=== PATIENT | female | born 1945 | race Caucasian/White ===

== ENCOUNTER → 2016-05-23 | Outpatient (CLI) | payer OTHER ==
--- NOTE | 2016-05-23 10:45 | DX ---
Left hip, 2 views. HISTORY: Post arthroplasty. FINDINGS: Surgical features of a left total hip arthroplasty are identified. The acetabular and femor al components of the prosthesis are well seated, without hardware complication. Moderate right hip joint space narrowing is present compatible with osteoarthritis. IMPRESSION: 1. Status post left total hip arthroplasty without hardware complication. 2. Moderate right hip degenerative joint disease.
--- NOTE | 2016-05-23 10:47 | DX ---
Left knee, 3 views. HISTORY: Status post left knee arthroplasty. COMPARISON STUDY: November 17, 2015. FINDINGS: Surgical features of a left total knee arthroplasty are identified. The components of the p rosthesis are well seated. There are 2 osseous fragments posterior to the knee joint on the lateral r adiograph, measuring 15 and 7 mm in size, which may be intra-articular or extra-articular in location . No evidence of prosthesis loosening. IMPRESSION: 1. Status post left knee arthroplasty without loosening. 2. 2 separate bony fragments posterior to left knee joint are potentially intra-articular or extra-ar ticular in location, unchanged in appearance from November 17, 2015.
== END ==
LOC: BMCIMAGING 09:52
PROVIDERS: ATTEND Orthopaedic Surgery
DX: Z96.652 Presence of left artificial knee joint (principal); Z96.642 Presence of left artificial hip joint; M16.12 Unilateral primary osteoarthritis, left hip

== ENCOUNTER → 2016-09-21 | Outpatient (CLI) | payer OTHER | LOC: FIMAGING 11:35 | PROVIDERS: ATTEND Orthopaedic Surgery | DX: M17.11 Unilateral primary osteoarthritis, right knee (principal); M16.11 Unilateral primary osteoarthritis, right hip ==

== ENCOUNTER → 2016-10-09 | Outpatient (CLI) | payer OTHER | LOC: BHFA 13:45 | PROVIDERS: ATTEND Internal Medicine Interventional Cardiology | DX: I25.10 Atherosclerotic heart disease of native coronary artery without angina pectoris (principal); E78.5 Hyperlipidemia, unspecified ==

== ENCOUNTER → 2016-10-16 | Outpatient (CLI) | payer OTHER | LOC: BHFA 14:45 | PROVIDERS: ATTEND Internal Medicine Cardiovascular Disease | DX: I25.10 Atherosclerotic heart disease of native coronary artery without angina pectoris (principal) ==

== ENCOUNTER 2016-10-22 10:15 | Inpatient (IN) | payer OTHER ==
--- NOTE | 2016-10-22 07:08 | PDHPUP ---
History & Physical Update H&P update statement: This history and physical update is based on an assessment of the patient which was completed after admission or registration (within 24 hours), but prior to the surgery/procedure. H&P update: H&P reviewed & patient examined, no change in patient's condition since H&P completed
[~2016-10-22 10:15] MED LIST: ACETAMINOPHEN 325 MG TAB PO ONE; BISACODYL 10 MG SUPP PR PRN; DEXAMETHASONE 4 MG/ML VIAL IVP ONE; DIAZEPAM 5 MG TAB PO PRN; DIPHENOXYLATE/ATROPINE LOMOTIL 1 TAB PO PRN; FAMOTIDINE 20 MG TAB PO ONE; LACTULOSE 20 GM/30 ML UDCUP PO PRN; LEVALBUTEROL INHALER 200 PUFFS/15 GM MDI IH PRN; LR 1,000 ML IV SCH; MAGNESIUM HYDROXIDE 30 ML UDCUP PO PRN; METOCLOPRAMIDE 10 MG/2 ML VIAL IVP PRN; ONDANSETRON 4 MG/2 ML VIAL IVP PRN; ONDANSETRON DISINTEGRATING 4 MG TAB PO PRN; PHARMACY PAIN CONSULT 1 EA MISC PRN; POLYETHYLENE GLYCOL 3350 17 GM PKT PO PRN; PROMETHAZINE HCL 25 MG SUPPR PR PRN; PROMETHAZINE HCL 25 MG/ML INJ IVP PRN; TEMAZEPAM 15 MG CAP PO PRN; TRANEXAMIC ACID 1 MG in NS 100 ML IV ONE; TRANEXAMIC ACID 700 MG in NS 100 ML IV ONE; ceFAZolin 2 GM/DEXTROSE 100 ML IV ONE; diphenhydrAMINE 25 MG CAP PO PRN; oxyCODONE IR 5 MG TAB PO PRN
[2016-10-22] MEDS ORDERED: LIDOCAINE 1% 2 ML INJ ID PRN (10:48)
[2016-10-22] MEDS ORDERED: LR 1,000 ML IV ONE (10:48)
[2016-10-22] MEDS ORDERED: CEFAZOLIN 2 GM/DEXTROSE/100 ML BAG IV ONE (10:55)
[2016-10-22] MEDS ORDERED: DEXAMETHASONE 4 MG/ML VIAL ONE ×2 (10:55→13:00)
[2016-10-22] MEDS ORDERED: FAMOTIDINE 20 MG TAB ONE (10:55)
--- NOTE | 2016-10-22 12:30 | PDANEPAE ---
ANE History of Present Illness 71 YO FEMALE WITH ARTHRITIS FOR r tka ANE Past Medical History - Cardiovascular History Hx Hypertension: No Hx Arrhythmias: No Hx Chest Pain: No Hx Coronary Artery / Peripheral Vascular Disease: No Hx CHF / Valvular Disease: No Hx Palpitations: No - Pulmonary History Hx COPD: No Hx Asthma/Reactive Airway Disease: Yes Hx Recent Upper Respiratory Infection: Yes Hx Oxygen in Use at Home: Yes O2 in Use at Home (L/minute): 2l @ noc - Neurologic History Hx Cerebrovascular Accident: No Hx Seizures: No Hx Dementia: No - Endocrine History Hx Diabetes: No - Renal History Hx Renal Disorders: No - Liver History Hx Hepatic Disorders: No - Neurological & Psychiatric Hx Hx Neurological and Psychiatric Disorders: No - Cancer History Hx Cancer: No - Congenital Disorder History Hx Congenital Disorders: No - GI History Hx Gastrointestinal Disorders: No - Chronic Pain History Chronic Pain: Yes (Joints) ANE Review of Systems - Exercise capacity METS (RN): 4 METS - Systems Constitutional: Reports: no symptoms Cardiac: Reports: no symptoms (mild CAD) Respiratory: Reports: no symptoms (no Er visits for RAD. Uses inhaler rarely. Has lung scarring from previous PNA) Muscolosketal: Reports: joint pain, joint swelling (R knee) ANE Patient History - Allergies Allergies/Adverse Reactions: SEASONAL Allergy (Mild, Uncoded 01/23/10 11:29) Other-Enter Comments - Home Medications Home Medications: Atorvastatin Calcium [Lipitor 10 mg (*)] 10 mg PO HS 09/17/16 [Last Taken ] Cholecalciferol Vit D3 [Vitamin D3 (*)] 4,000 units PO DAILY@1800 09/17/16 [ Last Taken 10/18/16] Estradiol [Estrace Vaginal (*)] 1 gm VAG MOWEFR 09/17/16 [Last Taken Unknown] Levalbuterol Inhaler [Xopenex Hfa Inhaler (*)] 1 puffs IH DAILY PRN 09/17/16 [ Last Taken 10/08/16] Multivitamins [Multivitamin (*)] 1 each PO DAILY 09/17/16 [Last Taken 10/18/16] [place]-3 Fatty Acids [Fish Oil 1000 mg (*)] 1,000 mg PO DAILY 09/17/16 [Last Taken 10/15/16] Ativan 0.5 mg PO PRN PRN 10/22/16 [Last Taken 10/21/16] - NPO status NPO Since - Liquids (Date): 10/21/16 NPO Since - Liquids (Time): 19:00 NPO Since - Solids (Date): 10/21/16 NPO Since - Solids (Time): 22:00 - Anes Hx Anes Hx: no prior problems - Smoking Hx Smoking Status: Never smoked Marijuana use: No - Alcohol Use Alcohol Use: Rarely - Family Anes Hx Family Anes Hx: neg - N/A Family Hx Anesthesia Complications: no ANE Labs/Vital Signs - Vital Signs Blood Pressure: 119/76 Heart Rate: 71 Respiratory Rate: 12 O2 Sat (%): 95 Height: 162.56 cm Weight: 69.853 kg ANE Physical Exam - Airway Neck exam: FROM Mallampati Score: Class 1 Mouth exam: normal dental/mouth exam - Pulmonary Pulmonary: no respiratory distress, clear to auscultation - Cardiovascular Cardiovascular: regular rate and rhythym - ASA Status ASA Status: III (h/o ITP, high cholesterol, HTN (no meds now), OA, RAD, ELLIOTT) ANE Anesthesia Plan Anesthesia Plan: spinal
[2016-10-22] MEDS ORDERED: MIDAZOLAM 2 MG/2 ML VIAL IVP ONE (12:33)
[2016-10-22] MEDS ORDERED: THROMBIN (BOVINE) 5,000 UNIT VIAL TP ONE (12:37)
[2016-10-22] MEDS ORDERED: CALCIUM CHLORIDE 1 GM/10 ML INJ ONE (12:37)
[2016-10-22] MEDS ORDERED: ceFAZolin 1 GM/5 ML SYR ONE (12:38)
[2016-10-22] MEDS ORDERED: fentaNYL 100 MCG/2 ML INJ ONE (12:59)
[2016-10-22] MEDS ORDERED: PROPOFOL/EMULSION 500 MG/50 ML BOTTLE IV ONE (12:59)
[2016-10-22] MEDS ORDERED: LIDOCAINE 2% 5 ML SDV ONE ×2 (13:00→13:01)
[2016-10-22] MEDS ORDERED: ROPI/epINEPH/KETOROLAC/morphINE IU ONE (14:00)
[2016-10-22] MEDS ORDERED: ROPIVACAINE HCL 150 MG/30 ML INJ ONE (14:30)
[2016-10-22] MEDS ORDERED: ALBUTEROL 3 ML DEYVIAL IH PRN (14:49)
[2016-10-22] MEDS ORDERED: fentaNYL 100 MCG/2 ML INJ IVP PRN (14:49)
[2016-10-22] MEDS ORDERED: OXYCODONE/APAP 5/325 TAB PO PRN (14:49)
[2016-10-22] MEDS ORDERED: D5W LR 500 ML IV PRN (14:49)
[2016-10-22] MEDS ORDERED: NALOXONE HCL 0.4 MG/ML INJ IVP PRN (14:49)
[2016-10-22] MEDS ORDERED: ONDANSETRON 4 MG/2 ML VIAL ONE (15:46)
[2016-10-22] MEDS: ONDANSETRON 4 MG/2 ML VIAL IVP PRN ×2 (15:48→16:13)
[2016-10-22] MEDS: ACETAMINOPHEN 325 MG TAB PO SCH ×2 (18:09→22:19)
[2016-10-22] MEDS: TRANEXAMIC ACID 650 MG TAB PO SCH ×3 (18:10→23:13)
[2016-10-22] MEDS: SENNOSIDES/DOCUSATE SODIUM TAB PO SCH ×2 (18:10→19:20)
[2016-10-22] MEDS ORDERED: TAPENTADOL HCL 50 MG TAB PO PRN (18:29)
[2016-10-22] MEDS ORDERED: LORazepam 1 MG TAB PO PRN (18:31)
[2016-10-22] MEDS: HYDROCODONE/APAP 5/325 TAB PO PRN ×2 (19:21→23:12)
[2016-10-22] MEDS: FAMOTIDINE 20 MG TAB PO SCH (19:21)
[2016-10-22] MEDS ORDERED: ATORVASTATIN CALCIUM 10 MG TAB PO SCH (21:00)
[2016-10-22] MEDS ORDERED: ASPIRIN 325 MG TAB PO SCH (21:00)
[2016-10-22] MEDS: ceFAZolin 2 GM/DEXTROSE 100 ML IV SCH (22:20)
[2016-10-23] MEDS: ACETAMINOPHEN 325 MG TAB PO SCH ×2 (05:12→12:03)
[2016-10-23] MEDS: ceFAZolin 2 GM/DEXTROSE 100 ML IV SCH (05:12)
[2016-10-23 05:23] VITALS: TEMP 97.7
[2016-10-23 05:33] LABS: HEMATOCRIT 29.1 % (38.0-47.0); HEMOGLOBIN 9.8 g/dL (12.6-16.3)
--- NOTE | 2016-10-23 07:11 | PDIAF ---
- Diagnosis Diagnosis: right knee djd Code Status: Full Code - Medication Management Discharge Medications: Medications to Continue on Transfer Atorvastatin Calcium [Lipitor 10 mg (*)] 10 mg PO HS 09/17/16 [Last Taken ] Cholecalciferol Vit D3 [Vitamin D3 (*)] 4,000 units PO DAILY@1800 09/17/16 [ Last Taken 10/18/16] Estradiol [Estrace Vaginal (*)] 1 gm VAG MOWEFR 09/17/16 [Last Taken Unknown] Levalbuterol Inhaler [Xopenex Hfa Inhaler (*)] 1 puffs IH DAILY PRN 09/17/16 [ Last Taken 10/08/16] Multivitamins [Multivitamin (*)] 1 each PO DAILY 09/17/16 [Last Taken 10/18/16] [place]-3 Fatty Acids [Fish Oil 1000 mg (*)] 1,000 mg PO DAILY 09/17/16 [Last Taken 10/15/16] Ativan 0.5 mg PO PRN PRN 10/22/16 [Last Taken 10/21/16] Hydrocodone/APAP 5/325 [[place] 5/325 (*)] 1 - 2 tab PO Q6HRS PRN #80 tab [Last Taken Unknown] LORazepam [Ativan (*)] 1 - 2 mg PO Q8HRS PRN #30 tab 10/23/16 [Last Taken Unknown] Rivaroxaban [Xarelto 10mg (*)] 10 mg PO DAILY #0 tab 10/23/16 [Last Taken Unknown] Tapentadol HCl [Nucynta 50 MG (*)] 50 - 100 mg PO Q4HRS PRN #60 tab 10/23/16 [ Last Taken Unknown] Discharge Medications: Refer to the Discharge Home Medication list for PRN reason. - Orders Services needed: Physical Therapy Diet Recommendation: no restrictions on diet Diet Texture: Regular Texture Diet Activity/Weight Bearing Restrictions: wbat. daily dressing changes. no soaking or immersion. may shower without bandage. aspirin 325 mg po daily. f/ u at two weeks - Follow Up Care Current Providers and Referrals: CHARLOTTE QUINONES [Primary Care Provider] -
[2016-10-23 07:37] VITALS: BP 104/56; PULSE 78; RESP 16; O2SAT 94
[2016-10-23] MEDS: FAMOTIDINE 20 MG TAB PO SCH (08:21)
[2016-10-23] MEDS: SENNOSIDES/DOCUSATE SODIUM TAB PO SCH (08:21)
[2016-10-23] MEDS ORDERED: RIVAROXABAN 10 MG TAB PO SCH (09:00)
--- NOTE | 2016-10-23 13:06 | GDS ---
[f rep st] DISCHARGE SUMMARY ADMISSION DIAGNOSES: Right knee degenerative joint disease. DISCHARGE DIAGNOSIS: Right knee degenerative joint disease. PROCEDURE: Right total knee arthroplasty. OPERATIVE INDICATIONS: The patient is a 71-year-old woman who is well known to me. She presents fo r elective right total knee replacement. She has end-stage arthritis. She has failed attempts at c onservative management. I therefore recommended operative intervention. She understood the risks, benefits, alternatives, and wished to proceed. Written consent was signed and placed in the patient 's chart. HOSPITAL COURSE: The patient was admitted to the hospital after an uncomplicated total knee replace ment. She tolerated the procedure well. She continued on aspirin for the first postoperative perio d and was started on Xarelto postop day #1. She has negative Homans sign on both lower extremities. No calf swelling or tenderness. Dressings are clean, dry, and intact. At the time of discharge, she is tolerating an oral diet. Her pain is well controlled on oral medicines. She is voiding with out difficulty. DISCHARGE ACTIVITY: She is weightbearing as tolerated. Range of motion as tolerated. Daily dressi ng changes. No soaking or immersion but may shower without bandage and/or dressing. FOLLOWUP: Followup in 2 weeks for repeat evaluation. Seek attention for increasing calf pain, redn ess, swelling, drainage, discharge, numbness, tingling, other focal complaints. DISCHARGE MEDICATIONS: Xarelto 10 mg p.o. daily, Nucynta 50 mg p.o. q.6 hours p.r.n. breakthrough p ain, Vicodin 5/325, 1-2 every 6 hours p.r.n. pain, and Ativan 1-2 mg orally q.8 hours p.r.n. anxiety . /[id number]/MODL
== END 2016-10-23 14:32 | disposition home or self-care (01) | DRG 470 ==
LOC: F3N 10:23 → PREOBSVTOIN 10:41 → F3N 17:04
PROVIDERS: ADMIT Orthopaedic Surgery; ATTEND Orthopaedic Surgery
PROC: 8E0Y0CZ Robotic Assisted Procedure of Lower Extremity, Open Approach (ICD-10-PCS; principal; 2016-10-22 12:15)
PROC: 0SRC0J9 Replacement of Right Knee Joint with Synthetic Substitute, Cemented, Open Approach (ICD-10-PCS; principal; 2016-10-22 12:15)
DX: M17.11 Unilateral primary osteoarthritis, right knee (principal); I25.10 Atherosclerotic heart disease of native coronary artery without angina pectoris; G47.33 Obstructive sleep apnea (adult) (pediatric); E78.5 Hyperlipidemia, unspecified
CPT/HCPCS: 97110-GP; 97161-GP; 97165-GO; C1713; G8978-GP-CI; G8979-GP-CI; G8980-GP-CI; G8987-GO-CI; G8988-GO-CI; G8989-GO-CI; J0171; J0690; J1100; J1885; J2250; J2405; J2550; J2704; J2795; J3010

== ENCOUNTER → 2016-12-06 | Outpatient (CLI) | payer OTHER | LOC: BMCIMAGING 09:08 | PROVIDERS: ATTEND Orthopaedic Surgery | DX: Z96.651 Presence of right artificial knee joint (principal) ==

== ENCOUNTER → 2017-01-17 | Outpatient (CLI) | payer OTHER | LOC: BMCIMAGING 09:56 | PROVIDERS: ATTEND Orthopaedic Surgery | DX: Z96.651 Presence of right artificial knee joint (principal) ==

== ENCOUNTER → 2017-01-30 | Outpatient (CLI) | payer OTHER | LOC: FIMAGING 10:40 | PROVIDERS: ATTEND Family Medicine | DX: Z12.31 Encounter for screening mammogram for malignant neoplasm of breast (principal) | CPT/HCPCS: G0202 ==

== ENCOUNTER → 2017-04-18 | Outpatient (CLI) | payer OTHER | LOC: BMCIMAGING 10:08 | PROVIDERS: ATTEND Orthopaedic Surgery | DX: Z47.1 Aftercare following joint replacement surgery (principal); Z96.651 Presence of right artificial knee joint; M25.461 Effusion, right knee ==

== ENCOUNTER → 2017-09-11 | Outpatient (CLI) | payer OTHER | LOC: BMCIMAGING 10:42 | PROVIDERS: ATTEND Family Medicine | DX: S69.92XA Unspecified injury of left wrist, hand and finger(s), initial encounter (principal); W19.XXXA Unspecified fall, initial encounter ==

== ENCOUNTER → 2017-10-17 | Outpatient (CLI) | payer OTHER | LOC: BMCIMAGING 09:40 | PROVIDERS: ATTEND Orthopaedic Surgery | DX: Z47.1 Aftercare following joint replacement surgery (principal); Z96.653 Presence of artificial knee joint, bilateral ==

== ENCOUNTER → 2018-02-17 | Outpatient (CLI) | payer OTHER | LOC: FIMAGING 09:50 | PROVIDERS: ATTEND Obstetrics & Gynecology | DX: Z12.31 Encounter for screening mammogram for malignant neoplasm of breast (principal) ==

== ENCOUNTER → 2018-03-05 | Outpatient (CLI) | payer OTHER | LOC: FIMAGING 13:28 | PROVIDERS: ATTEND Obstetrics & Gynecology | DX: Z13.820 Encounter for screening for osteoporosis (principal) ==

== ENCOUNTER → 2018-05-02 | Outpatient (CLI) | payer OTHER ==
[~2018-05-02] MED LIST changes: -ACETAMINOPHEN 325 MG TAB PO ONE; -BISACODYL 10 MG SUPP PR PRN; -DEXAMETHASONE 4 MG/ML VIAL IVP ONE; -DIAZEPAM 5 MG TAB PO PRN; -DIPHENOXYLATE/ATROPINE LOMOTIL 1 TAB PO PRN; -FAMOTIDINE 20 MG TAB PO ONE; +GADOBUTROL 10 ML VIAL IVP ONE; -LACTULOSE 20 GM/30 ML UDCUP PO PRN; -LEVALBUTEROL INHALER 200 PUFFS/15 GM MDI IH PRN; -LR 1,000 ML IV SCH; -MAGNESIUM HYDROXIDE 30 ML UDCUP PO PRN; -METOCLOPRAMIDE 10 MG/2 ML VIAL IVP PRN; -ONDANSETRON 4 MG/2 ML VIAL IVP PRN; -ONDANSETRON DISINTEGRATING 4 MG TAB PO PRN; -PHARMACY PAIN CONSULT 1 EA MISC PRN; -POLYETHYLENE GLYCOL 3350 17 GM PKT PO PRN; -PROMETHAZINE HCL 25 MG SUPPR PR PRN; -PROMETHAZINE HCL 25 MG/ML INJ IVP PRN; -TEMAZEPAM 15 MG CAP PO PRN; -TRANEXAMIC ACID 1 MG in NS 100 ML IV ONE; -TRANEXAMIC ACID 700 MG in NS 100 ML IV ONE; -ceFAZolin 2 GM/DEXTROSE 100 ML IV ONE; -diphenhydrAMINE 25 MG CAP PO PRN; -oxyCODONE IR 5 MG TAB PO PRN
== END ==
LOC: FIMAGING 07:54
PROVIDERS: ATTEND Physician Assistant Medical
DX: R29.898 Other symptoms and signs involving the musculoskeletal system (principal)
CPT/HCPCS: 70553; A9585; 82565-PO